=== PATIENT | male | born 1985 | race Caucasian/White ===

== ENCOUNTER 2017-09-26 12:04 | Emergency (ER) | payer OTHER ==
[~2017-09-26] VITALS: Ht 177.8 cm; Wt 68.7 kg
[~2017-09-26 12:04] MED LIST: LEVA750T9 PO; METH10CO3 PO; OXYC5 PO; XANA1TAB6 PO
[2017-09-26 12:08] VITALS: BP 158/78; PULSE 115; RESP 16; TEMP 97.3; O2SAT 99
[2017-09-26] MEDS ORDERED: CYCLOBENZAPRINE HCL 10 MG TAB PO ONE (13:00)
[2017-09-26] MEDS ORDERED: IBUPROFEN 600 MG TAB PO ONE (13:00)
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
[2017-09-26] MEDS ORDERED: CYCL10TA PO (13:42)
[2017-09-26 13:51] VITALS: BP 122/78
== END 2017-09-26 13:52 | disposition home or self-care (01) ==
LOC: PHEFT 12:04
DX: T14.8XXA Other injury of unspecified body region, initial encounter (principal); G89.29 Other chronic pain; F17.210 Nicotine dependence, cigarettes, uncomplicated; V49.49XA Driver injured in collision with other motor vehicles in traffic accident, initial encounter
CPT/HCPCS: 71020; 73630; 99283